=== PATIENT | female | born 1970 | race Caucasian/White ===

== ENCOUNTER 2017-12-04 23:50 | Emergency (ER) | payer OTHER ==
--- NOTE | 2017-12-05 03:03 | PDOC ---
History of Present Illness - General Stated Complaint: PAIN Time Seen by Provider: 12/05/17 02:36 History Source: Patient Exam Limitations: No Limitations - History of Present Illness Travel History: No Initial Comments: 12/05/17 04:29 47-year-old female presents to the ER with her daughter complaining of left lower quadrant abdominal discomfort with some nausea but denies fever, chills, headache, dizziness, lightheadedness, neck/stiffness, back pains, chest pain, shortness of breath, flank pains, urinary symptoms: Frequency/urgency/hesitancy , hematuria. There are no exacerbating or alleviating factors. There are no history of similar symptoms. Past History - Past Medical History Allergies/Adverse Reactions: Allergies Allergy/AdvReac Type Severity Reaction Status Date / Time No Known Allergies Allergy Verified 12/05/17 03:14 Home Medications: Ambulatory Orders NK [No Known Home Medication] 12/05/17 Review of Systems - Review of Systems Able to Perform ROS?: Yes Comments:: 12/05/17 04:30 CONSTITUTIONAL: Absent: fever, chills, diaphoresis, generalized weakness, malaise, loss of appetite HEENT: Absent: rhinorrhea, nasal congestion, throat pain, throat swelling, difficulty swallowing, mouth swelling, ear pain, eye pain, visual Changes CARDIOVASCULAR: Absent: chest pain, loss of consciousness, palpitations, irregular heart rate, peripheral edema RESPIRATORY: Absent: cough, shortness of breath, dyspnea with exertion, orthopnea, wheezing, stridor, hemoptysis GASTROINTESTINAL: LLQ pain Absent: abdominal distension, nausea, vomiting, diarrhea, constipation, melena, hematochezia GENITOURINARY: Absent: dysuria, frequency, urgency, hesitancy, hematuria, flank pain, genital pain MUSCULOSKELETAL: Absent: myalgia, arthralgia, joint swelling SKIN: Absent: rash, itching, pallor HEMATOLOGIC/IMMUNOLOGIC: Absent: easy bleeding, easy bruising, lymphadenopathy, frequent infections ENDOCRINE: Absent: unexplained weight gain, unexplained weight loss, heat intolerance, cold intolerance NEUROLOGIC: Absent: headache, focal weakness or paresthesias, dizziness, unsteady gait, seizure, mental status changes, bladder or bowel incontinence PSYCHIATRIC: Absent: anxiety, depression, suicidal or homicidal ideation, hallucinations. Is the patient limited Frisian proficient: No *Physical Exam - Physical Exam Comments: 12/05/17 04:30 GENERAL: Well developed, well nourished. Awake and alert. No acute distress. HEENT: Normocephalic, atraumatic. PERRLA, EOMI. No conjunctival pallor. Sclera are non- icteric. Moist mucous membranes. Oropharynx is clear. NECK: Supple. Full ROM. No JVD. Carotid pulses 2+ and symmetric, without bruits. No thyromegaly. No lymphadenopathy. CARDIOVASCULAR: Regular rate and rhythm. No murmurs, rubs, or gallops. Distal pulses are 2+ and symmetric. PULMONARY: No evidence of respiratory distress. Lungs clear to auscultation bilaterally. No wheezing, rales or rhonchi. ABDOMINAL: +LLQ pain on palp Soft. Non-distended. No rebound or guarding. No organomegaly. Normoactive bowel sounds. MUSCULOSKELETAL Normal range of motion at all joints. No bony deformities or tenderness. No CVA tenderness. EXTREMITIES: No cyanosis. No clubbing. No edema. No calf tenderness. SKIN: Warm and dry. Normal capillary refill. No rashes. No jaundice. NEUROLOGICAL: Alert, awake, appropriate. Cranial nerves 2-12 intact. No deficits to light touch and temperature in face, upper extremities and lower extremities. No motor deficits in the in face, upper extremities and lower extremities. Normoreflexic in the upper and lower extremities. Normal speech. Toes are down- going bilaterally. Gait is normal without ataxia. PSYCHIATRIC: Cooperative. Good eye contact. Appropriate mood and affect. ED Treatment Course - LABORATORY CBC & Chemistry Diagram: 12/05/17 03:30 12/05/17 03:30 - RADIOLOGY Radiograph Interpretation: 12/05/17 04:30 CT abd/pelvis po/iv contrast Left ovarian follicle *DC/Admit/Observation/Transfer Diagnosis at time of Disposition: Abdominal pain Qualifiers: Abdominal location: unspecified location Qualified Code(s): R10.9 - Unspecified abdominal pain - Discharge Dispostion Condition at time of disposition: Fair Decision to Admit order: No - Referrals Referrals: Fermin Restrepo MD [Staff Physician] - Catherine Matt MD [Staff Physician] - - Patient Instructions Printed Discharge Instructions: DI for Abdominal Pain-Adult Additional Instructions: Rest Follow up with your degreasing solution reclaimer for your discomfort Return to the ER for severe/persistent/worsening symptoms - Post Discharge Activity
[2017-12-05 03:14] VITALS: BP 134/85; PULSE 73; TEMP 97.5; BMI 35.3
[2017-12-05 03:20] LABS: URINE APPEARANCE SLCLOUDY; URINE BILIRUBIN NEGATIVE (<2.0 mg/dL); URINE COLOR YELLOW; URINE GLUCOSE (UA) NEGATIVE (NEGATIVE); URINE KETONE NEGATIVE (NEGATIVE); URINE LEUK ESTERASE NEGATIVE (NEGATIVE); URINE NITRITE NEGATIVE (NEGATIVE); URINE UROBILINOGEN NEGATIVE mg/dL (0.2-1.0)
[2017-12-05 03:21] LABS: HCG,QUALITATIVE URINE NEGATIVE
[2017-12-05 03:22] LABS: URINE PROTEIN 2+ (NEGATIVE)
[2017-12-05] MEDS ORDERED: SODIUM CHLORIDE 1,000 ML IV STA (03:24)
[2017-12-05 03:32] LABS: EPI CELLS RARE /HPF (FEW); URINE MUCUS RARE
[2017-12-05 03:58] LABS: BASO % 0.7 % (0-2.0); EOS % 0.3 % (0-4.5); HEMATOCRIT 32.2 % (32.4-45.2); HEMOGLOBIN 11.2 GM/dL (10.7-15.3); LYMPH % 30.3 % (8-40); MCHC 34.9 g/dl (32.0-36.0); MEAN CELL VOLUME 83.1 fl (80-96); MEAN PLT VOLUME 9.3 fl (7.5-11.1); MONO % 7.3 % (3.8-10.2); NEUT % 61.4 % (42.8-82.8); PLATELET COUNT 190 K/MM3 (134-434); RBC 3.87 M/mm3 (3.60-5.2); RDW 14.3 % (11.6-15.6); WHITE BLOOD COUNT 9.8 K/mm3 (4.0-10.0)
[2017-12-05 04:29] LABS: ALBUMIN 3.6 g/dl (3.4-5.0); ALK PHOS 111 U/L (45-117); ANION GAP 6 (8-16); BILIRUBIN,TOTAL 0.6 mg/dL (0.2-1.0); BLOOD UREA NITROGEN 11 mg/dL (7-18); CALCIUM 8.2 mg/dL (8.5-10.1); CHLORIDE 106 mmol/L (98-107); CO2 27 mmol/L (21-32); CREATININE 0.6 mg/dL (0.55-1.02); GLUCOSE,RANDOM 102 mg/dL (74-106); POTASSIUM 3.4 mmol/L (3.5-5.1); SGOT/AST 27 U/L (15-37); SGPT/ALT 31 U/L (12-78); SODIUM 139 mmol/L (136-145); TOT PROT 7.1 g/dl (6.4-8.2)
== END 2017-12-05 07:04 | disposition home or self-care (01) ==
LOC: JER 23:50
DX: N83.202 Unspecified ovarian cyst, left side (principal)
CPT/HCPCS: 36415; 74177-TC; 80053; 81003; 81015; 84703; 85025; 87086; 99283-25; J7030

== ENCOUNTER 2019-02-24 12:24 | Emergency (ER) | payer OTHER ==
[2019-02-24 12:30] VITALS: BP 165/80; PULSE 75; BMI 36.3
--- NOTE | 2019-02-24 12:31 | PDOC ---
Rapid Medical Evaluation Time Seen by Provider: 02/24/19 12:28 Medical Evaluation: Allergies Allergy/AdvReac Type Severity Reaction Status Date / Time No Known Allergies Allergy Verified 02/24/19 12:27 02/24/19 12:28 I have performed a brief in-person evaluation of this patient. The patient presents with a chief complaint of: RLQ pain since this am, (+) nausea, no vomiting, no urinary complaints. Currently menstruating. LMP 3 days ago, does not feel like menstrual cramps. PMHx Lupus, HTN Pertinent physical exam findings: Pt in mild discomfort from pain. I have ordered the following: CBC, CMP, UA, UCG, Ucx, PT, Type n screen The patient will proceed to the ED for further evaluation. 02/24/19 12:30 Discharge Disposition - Diagnosis Abdominal pain Qualifiers: Abdominal location: right lower quadrant Qualified Code(s): R10.31 - Right lower quadrant pain - Referrals - Patient Instructions - Post Discharge Activity
--- NOTE | 2019-02-24 12:42 | PDOC ---
History of Present Illness - General Chief Complaint: Pain, Acute Stated Complaint: PELVIC PAIN Time Seen by Provider: 02/24/19 12:28 Past History - Past Medical History Allergies/Adverse Reactions: Allergies Allergy/AdvReac Type Severity Reaction Status Date / Time No Known Allergies Allergy Verified 02/24/19 12:27 Home Medications: Ambulatory Orders Cephalexin [Keflex] 500 mg PO BID #13 capsule 02/24/19 Lisinopril 10 mg PO DAILY 02/24/19 Terbinafine HCl 250 mg PO DAILY 02/24/19 COPD: No HTN: Yes - Immunization History Immunization Up to Date: Yes - Suicide/Smoking/Psychosocial Hx Smoking History: Never smoked Have you smoked in the past 12 months: No Hx Alcohol Use: No Drug/Substance Use Hx: No *Physical Exam - Vital Signs Last Vital Signs Temp Pulse Resp BP Pulse Ox 97.7 F 75 18 165/80 99 02/24/19 12:28 02/24/19 12:28 02/24/19 12:28 02/24/19 12:28 02/24/19 12:28 ED Treatment Course - LABORATORY CBC & Chemistry Diagram: 02/24/19 13:25 02/24/19 13:25 Medical Decision Making - Medical Decision Making HPI: 49yo F with PMH of HTN, fibroids, and lupus (unsure what her medicines are) presenting with RLQ pain that started this morning. Patient states the pain worsened gradually, currently rated 9/10 and described as a "cramping." Nothing makes the pain better or worse. She has not taken anything at home for her pain. She has never had pain like this before.Patient has had pain from her fibroids previously, but this feels different. LMP started three days ago. No history of abdominal surgeries. Last bowel movement was this morning and was a formed yellow stool without blood. Has had poor po intake due to low appetite. No fevers, chills, chest pain, or shortness of breath. PCP: in the [facility] ROS: Constitutional: no fever, no chills HEENT: no throat pain, no dysphagia Cardiovascular: no chest pain, no palpitations Respiratory: no cough, no shortness of breath Gastrointestinal: +abdominal pain, +nausea Genitourinary: no dysuria, no hematuria Musculoskeletal: no myalgia, no arthralgia Skin: no rash, no itching Neurologic: no headache, no weakness PE: General: Awake, alert, and fully oriented, in no acute distress Head: No signs of trauma Eyes: EOMI, sclera anicteric ENT: Moist mucus membranes Neck: Normal ROM, supple Lungs: Lungs clear, Normal breath sounds Cardio: Regular rhythm, S1 and S2 present Abdomen: RLQ tenderness, +McBurney's point with rebound, -Rosving, -Psoas, no guarding, no masses Extremities: Normal range of motion, Distal pulses present SKIN: Warm, Dry, normal turgor Neurologic: Cranial nerves II through XII grossly intact. Normal speech Pelvic: External genitalia without erythema, exudate or discharge. Vaginal vault is with moderate blood. Cervix is of normal color without lesion. The os is closed. Uterus is noted to be of appropriate size and nontender. No cervical motion tenderness is seen. No masses are palpated. The adnexa are without masses or tenderness. ED Courses/MDM: DDX including but not limited to appendicitis, nephrolithiasis, pyelonephritis, UTI, fibroids, ovarian cyst, ovarian torsion Labs CTAP Morphine, Zofran, Fluids 02/24/19 12:42 CBC WBC 11.2 K/mm3 (4.0-10.0) H 02/24/19 13:25 RBC 4.55 M/mm3 (3.60-5.2) 02/24/19 13:25 Hgb 12.1 GM/dL (10.7-15.3) 02/24/19 13:25 Hct 36.2 % (32.4-45.2) 02/24/19 13:25 MCV 79.7 fl (80-96) L 02/24/19 13:25 MCH 26.5 pg (25.7-33.7) 02/24/19 13:25 MCHC 33.3 g/dl (32.0-36.0) 02/24/19 13:25 RDW 14.7 % (11.6-15.6) 02/24/19 13:25 Plt Count 173 K/MM3 (134-434) 02/24/19 13:25 MPV 9.8 fl (7.5-11.1) 02/24/19 13:25 Absolute Neuts (auto) 9.1 K/mm3 (1.5-8.0) H 02/24/19 13:25 Neutrophils % 80.5 % (42.8-82.8) D 02/24/19 13:25 Lymphocytes % 13.8 % (8-40) D 02/24/19 13:25 Monocytes % 4.9 % (3.8-10.2) 02/24/19 13:25 Eosinophils % 0.3 % (0-4.5) 02/24/19 13:25 Basophils % 0.5 % (0-2.0) 02/24/19 13:25 Nucleated RBC % 0 % (0-0) 02/24/19 13:25 Mild leukocytosis Pending chemistry 02/24/19 13:51 Pain is improved, now rated 09/0502/24/19 14:15 CMP Sodium 139 mmol/L (136-145) 02/24/19 13:25 Potassium 4.2 mmol/L (3.5-5.1) 02/24/19 13:25 Chloride 105 mmol/L (98-107) 02/24/19 13:25 Carbon Dioxide 27 mmol/L (21-32) 02/24/19 13:25 Anion Gap 7 MMOL/L (8-16) L 02/24/19 13:25 BUN 9.5 mg/dL (7-18) 02/24/19 13:25 Creatinine 0.7 mg/dL (0.55-1.3) 02/24/19 13:25 Est GFR (CKD-EPI)AfAm 119.58 02/24/19 13:25 Est GFR (CKD-EPI)NonAf 103.18 02/24/19 13:25 Random Glucose 97 mg/dL (74-106) 02/24/19 13:25 Calcium 8.4 mg/dL (8.5-10.1) L 02/24/19 13:25 Total Bilirubin 0.3 mg/dL (0.2-1) 02/24/19 13:25 AST 40 U/L (15-37) H 02/24/19 13:25 ALT 32 U/L (13-61) 02/24/19 13:25 Alkaline Phosphatase 116 U/L (45-117) 02/24/19 13:25 Total Protein 7.3 g/dl (6.4-8.2) 02/24/19 13:25 Albumin 3.6 g/dl (3.4-5.0) 02/24/19 13:25 Lipase 185 U/L (73-393) 02/24/19 13:25 Beta HCG, Quant < 1.0 mIU/ml 02/24/19 13:25 Electrolytes unremarkable Cr normal Lipase normal negative Patient sent to CT 02/24/19 14:23 Call to in-house radiologst. Patient's CT will be read next 02/24/19 16:13 CT negative for appendicitis Plan for TVUS to rule out ovarian torsion Benign pelvic exam, as above Ofirmev for pain Patient with UTI, rocephin ordered Will reassess 02/24/19 18:29 TVUS, via Imaging sessions clerk: "FINDINGS: The uterus measures 10.5 x 7.3 x 7.2 cm. Ovoid foci of mixed echogenicity within the uterine parenchyma measure 1.3 x 1.5 x 1.8 cm and 2.4 x 2.4 x 3.0 cm, respectively. Endometrial thickness is 0.9 cm. An anechoic nabothian cyst measures 0.7 cm. The right ovary measures 3.3 x 4.2 x 4.6 cm. An ovoid anechoic focus within the right ovary measures 2.7 x 2.7 x 3.4 cm. Flow is visualized within the right ovarian parenchyma on Doppler evaluation.The left ovary measures 2.6 x 3.1 x 4.5 cm. Anechoic follicles are seen within the left ovary, without apparent left adnexal masses or large cysts noted. There is a trace amount of anechoic fluid within the endocervical canal. There is minimal fluid seen within the pelvic cul-de-sac. IMPRESSION: 1. Uterine myomas, as discussed above. 2. Nonspecific fluid within the endocervical canal. If able to be performed, recommend sonohysterogram if there is concern for endometrial abnormalities. 3. Right ovarian cyst. 4. Nabothian cyst. 5. Trace free fluid within the pelvic cul-de-sac, likely physiologic." Pending po challenge Keflex sent to pharmacy Patient febrile likely due to UTI; already treated with Ofirmev 02/24/19 19:33 Po challenge passed with water and crackers Repeat temperature improved, no longer febrile Patient discharged with return precautions *DC/Admit/Observation/Transfer Diagnosis at time of Disposition: Leiomyoma Abdominal pain Qualifiers: Abdominal location: right lower quadrant Qualified Code(s): R10.31 - Right lower quadrant pain Ovarian cyst Qualifiers: Laterality: bilateral Qualified Code(s): N83.201 - Unspecified ovarian cyst, right side - Discharge Dispostion Disposition: HOME Condition at time of disposition: Stable - Prescriptions Prescriptions: Cephalexin [Keflex] 500 mg PO BID #13 capsule - Referrals Referrals: ON STAFF,NOT [Primary Care Provider] - - Patient Instructions Printed Discharge Instructions: DI for Ovarian Cyst Additional Instructions: You came into the ED for abdominal pain. Labs, CT, and Ultrasound imaging did not indicate acute pathology. Your urinalysis showed you have urinary tract infection. Antibiotics sent to your pharmacy. You can take [id number] tylenol or motrin for pain. Follow the instructions on the medication bottle. Follow-up with your primary care or practice nurse doctor in the next 72 hours to discuss this ED visit and to further evaluate your symptoms. Call and make an appointment. Your workup is not complete until you do so. Immediate medical attention is required if you have: you develop worsening pain , high fevers, persistent nausea, vomiting, or any new or concerning symptoms. If you think you are having an emergency, call for emergency medical services or present to the emergency department right away. === Llegaste al servicio de urgencias por dolor abdominal. Labs, CT y ecografa no indicaron patologa aguda. Orozco anlisis de orina mostr que tiene norma infeccin del tracto urinario. Antibiticos enviados a orozco farmacia. Puede ángela tylenol o motrin de venta narda para el dolor. Siga las instrucciones en la botella del medicamento. Rosa Elena un seguimiento con orozco mdico de atencin primaria o gineclogo / obstetra en las prximas 72 horas para analizar esta visita al servicio de urgencias y evaluar mejor cindy sntomas. Llame y rosa elena norma danny. Orozco trabajo no est completo hasta que lo rosa elena. Se requiere atencin mdica inmediata si tiene: desarrolla dolor que empeora, fiebre bubba, nuseas persistentes, vmitos o cualquier sntoma nuevo o preocupante. Si ajith que est teniendo norma emergencia, llame a los servicios mdicos de emergencia o presntese de inmediato en el departamento de emergencias. - Post Discharge Activity
[2019-02-24] MEDS ORDERED: ONDANSETRON 4 MG/2 ML VIAL IVPUSH ONE (13:08)
[2019-02-24] MEDS ORDERED: morphine CARPU-JECT 4 MG/1 ML DISP.SYRIN IVPUSH ONE (13:08)
[2019-02-24] MEDS ORDERED: SODIUM CHLORIDE 1,000 ML IV STA (13:08)
--- NOTE | 2019-02-24 13:20 | PDOC ---
Documentation entered by Renny Thurman SCRIBE, acting as scribe for Merritt Torres MD. Merritt Torres MD: This documentation has been prepared by the Cuca aguirre Elijah, SCRIBE, under my direction and personally reviewed by me in its entirety. I confirm that the documentation accurately reflects all work, treatment, procedures, and medical decision making performed by me. Attending Attestation - Resident Resident Name: Molly Andrews - ED Attending Attestation I have performed the following: I have examined & evaluated the patient, The case was reviewed & discussed with the resident, I agree w/resident's findings & plan - HPI HPI: 02/24/19 14:09 Patient is a 49 year old female with a significant past medical history of HTN, fibroids, and lupus who presents to the ED with RLQ pain starting this morning. Patient reports the pain as a 9/10 intensity and as cramping. Patient reports that this feels unlike any pain she has had before and also notes a decrease in appetite. Allergies: NKA - Physicial Exam PE: 02/24/19 14:09 Vitals: Triage Vital signs reviewed General Appearance: no acute distress, well nourished well developed, Neck: Supple;No Nuchal rigidity Chest Wall: Nontender Cardiac: Regular rate and rhythm, no murmurs, no rubs, no gallops, Lungs: Clear to auscultation bilateral, good air movement bilaterally, Abdomen: +RLQ Pain. Soft, nondistended, normal bowel sounds Rectal: Exam deferred Extremities: Full range of motion to all extremities, no cyanosis, clubbing, or edema Skin: Warm and dry, no rashes or lesions, no petechiae Psych: normal mood, normal affect
[2019-02-24] MEDS ORDERED: morphine SULFATE 4 MG/ML VIAL ONE (13:25)
[2019-02-24] MEDS ORDERED: ONDANSETRON 4 MG/2 ML VIAL ONE (13:26)
[2019-02-24 13:33] LABS: BASO % 0.5 % (0-2.0); EOS % 0.3 % (0-4.5); HEMATOCRIT 36.2 % (32.4-45.2); HEMOGLOBIN 12.1 GM/dL (10.7-15.3); LYMPH % 13.8 % (8-40); MCH 26.5 pg (25.7-33.7); MCHC 33.3 g/dl (32.0-36.0); MEAN CELL VOLUME 79.7 fl (80-96); MEAN PLT VOLUME 9.8 fl (7.5-11.1); MONO % 4.9 % (3.8-10.2); NEUT % 80.5 % (42.8-82.8); PLATELET COUNT 173 K/MM3 (134-434); RBC 4.55 M/mm3 (3.60-5.2); RDW 14.7 % (11.6-15.6); WHITE BLOOD COUNT 11.2 K/mm3 (4.0-10.0)
[2019-02-24 13:42] LABS: EPI CELLS 1.6 /HPF (0-5/HPF); HYALINE CASTS 13 /lpf (0-8); URINE APPEARANCE CLEAR; URINE BACTERIA 62.2 /hpf (NEGATIVE); URINE BILIRUBIN NEGATIVE (NEGATIVE); URINE COLOR YELLOW; URINE GLUCOSE (UA) NEGATIVE (NEGATIVE); URINE KETONE NEGATIVE (NEGATIVE); URINE LEUK ESTERASE 1+ (NEGATIVE); URINE NITRITE NEGATIVE (NEGATIVE); URINE PROTEIN 1+ (NEGATIVE); URINE RBC 66 /hpf (0-4); URINE UROBILINOGEN 0.2 mg/dL (0.2-1.0); URINE WBC 44 /hpf (0-5)
[2019-02-24 13:47] LABS: INR 1.11 (0.83-1.09); PROTHROMBIN TIME (PATIENT) 13.1 SEC (9.7-13.0)
[2019-02-24 13:50] LABS: ACTIVATED PTT 37.1 SECONDS (25.2-36.5)
[2019-02-24 14:11] LABS: LIPASE 185 U/L (73-393)
[2019-02-24 14:16] LABS: ALBUMIN 3.6 g/dl (3.4-5.0); BILIRUBIN,TOTAL 0.3 mg/dL (0.2-1); BLOOD UREA NITROGEN 9.5 mg/dL (7-18); CALCIUM 8.4 mg/dL (8.5-10.1); CREATININE 0.7 mg/dL (0.55-1.3); POTASSIUM 4.2 mmol/L (3.5-5.1); TOT PROT 7.3 g/dl (6.4-8.2)
[2019-02-24] MEDS ORDERED: CEFTRIAXONE 1,000 MG in DEXTROSE 5%-WATER - 50 ML IVPB ONE (17:46)
[2019-02-24] MEDS ORDERED: ACETAMINOPHEN 1000 MG/100 ML VIAL (NON FORMULARY) IVPB ONE (17:46)
[2019-02-24] MEDS ORDERED: CEFTRIAXONE 1 GM/50 ML BAG ONE (18:12)
[2019-02-24] MEDS ORDERED: ACETAMINOPHEN INJECTION 100 ML IVPB ONE (18:12)
[2019-02-24 20:11] VITALS: TEMP 99
== END 2019-02-24 20:11 | disposition home or self-care (01) ==
LOC: JER 12:24
PROC: 3E03329 Introduction of Other Anti-infective into Peripheral Vein, Percutaneous Approach (ICD-10-PCS; principal; 2019-02-24)
PROC: 3E033NZ Introduction of Analgesics, Hypnotics, Sedatives into Peripheral Vein, Percutaneous Approach (ICD-10-PCS; 2019-02-24)
PROC: 3E033NZ Introduction of Analgesics, Hypnotics, Sedatives into Peripheral Vein, Percutaneous Approach (ICD-10-PCS; 2019-02-24)
PROC: 3E033GC Introduction of Other Therapeutic Substance into Peripheral Vein, Percutaneous Approach (ICD-10-PCS; 2019-02-24)
DX: N39.0 Urinary tract infection, site not specified (principal); D25.9 Leiomyoma of uterus, unspecified; N83.201 Unspecified ovarian cyst, right side; N83.202 Unspecified ovarian cyst, left side
CPT/HCPCS: 36415; 74177-TC; 76830-TC; 80053; 81003; 83690; 84702; 84703; 85025; 85610; 85730; 86850; 86900; 86901; 87077; 87086; 99285-25; J0131; J7030

== ENCOUNTER 2019-07-12 22:06 | Emergency (ER) | payer OTHER ==
[2019-07-12 22:14] VITALS: TEMP 98.8; BMI 35.3
[2019-07-12 23:18] VITALS: BP 144/83; PULSE 100
--- NOTE | 2019-07-13 00:24 | PDOC ---
Documentation entered by Hermes Miles SCRIBE, acting as scribe for Theresa Soler MD. Theresa Soler MD: This documentation has been prepared by the Jd aguirre Xhesika, SCRIBE, under my direction and personally reviewed by me in its entirety. I confirm that the documentation accurately reflects all work, treatment, procedures, and medical decision making performed by me. History of Present Illness - General Chief Complaint: Cold Symptoms Stated Complaint: FEVER/COUGH/HEADACHE Time Seen by Provider: 07/12/19 23:10 History Source: Patient Exam Limitations: No Limitations - History of Present Illness Initial Comments: 07/12/19 23:22 Patient is a 49 year old female with a significant past medical history of HTN, fibroids, and lupus who presents to the ED with 2 days of nasal congestion cough/ cold, fever. Patient reports R breast mass last Thursday. Pt notes she went to [facility] and was told they could not do a US and she needs to follow up with a specialist. The patient states her appointment is on at 1pm where the specialist is going to look at her old mammograms and do further evaluation of her reported breast mass. The patient denies chest pain, shortness of breath, headache and dizziness. Denies chills, nausea, vomiting, diarrhea and constipation. Denies dysuria, frequency, urgency and hematuria. Allergies: NKA Past History - Past Medical History Allergies/Adverse Reactions: Allergies Allergy/AdvReac Type Severity Reaction Status Date / Time No Known Allergies Allergy Verified 02/24/19 12:27 Home Medications: Ambulatory Orders Lisinopril 10 mg PO DAILY 02/24/19 COPD: No HTN: Yes Other medical history: Lupus - Immunization History Immunization Up to Date: Yes - Psycho Social/Smoking Cessation Hx Smoking History: Never smoked Have you smoked in the past 12 months: No Hx Alcohol Use: No Drug/Substance Use Hx: No Review of Systems - Review of Systems Able to Perform ROS?: Yes Comments:: 07/12/19 23:23 GENERAL/CONSTITUTIONAL: (+) fever. No chills. No weakness. HEAD, EYES, EARS, NOSE AND THROAT: No change in vision. No ear pain or discharge. No sore throat. (+) nasal congestion. CARDIOVASCULAR: No chest pain or shortness of breath. RESPIRATORY: (+) cough. No wheezing, or hemoptysis. GASTROINTESTINAL: No nausea, vomiting, diarrhea or constipation. GENITOURINARY: No dysuria, frequency, or change in urination. MUSCULOSKELETAL: No joint or muscle swelling or pain. No neck or back pain. SKIN: (+) reported R breast mass. NEUROLOGIC: No headache, vertigo, loss of consciousness, or change in strength/ sensation. ENDOCRINE: No increased thirst. No abnormal weight change. HEMATOLOGIC/LYMPHATIC: No anemia, easy bleeding, or history of blood clots. ALLERGIC/IMMUNOLOGIC: No hives or skin allergy. *Physical Exam - Vital Signs Last Vital Signs Temp Pulse Resp BP Pulse Ox 98.8 F 104 H 20 161/101 H 98 07/12/19 22:11 07/12/19 22:11 07/12/19 22:11 07/12/19 22:11 07/12/19 22:11 - Physical Exam 07/12/19 23:24 GENERAL: Awake, alert, and fully oriented, in no acute distress HEAD: No signs of trauma EYES: PERRLA, EOMI, sclera anicteric, conjunctiva clear ENT: Auricles normal inspection, hearing grossly normal, nares patent, oropharynx clear without exudates. Moist mucosa NECK: Normal ROM, supple, no lymphadenopathy, JVD, or masses LUNGS: Breath sounds equal, clear to auscultation bilaterally. No wheezes, and no crackles HEART: Regular rate and rhythm, normal S1 and S2, no murmurs, rubs or gallops ABDOMEN: Soft, nontender, normoactive bowel sounds. No guarding, no rebound. No masses EXTREMITIES: Normal range of motion, no edema. No clubbing or cyanosis. No cords, erythema, or tenderness NEUROLOGICAL: Cranial nerves II through XII grossly intact. Normal speech, normal gait SKIN: Warm, Dry, normal turgor, no rashes or lesions noted. Discharge - Discharge Information Problems reviewed: Yes Clinical Impression/Diagnosis: Influenza Condition: Stable Disposition: HOME - Follow up/Referral Referrals: ON STAFF,NOT [Primary Care Provider] - - Patient Discharge Instructions Patient Printed Discharge Instructions: DI for Influenza -- Adult Additional Instructions: please take tylenol or motrin for fever and bodyaches roll picker your medication for flu symptoms at the pharmacy rest drink plenty of fluid PLEASE keep your appointment with the specialist at [facility] for the breast lump your were diagnosed with 2 weeks ago - Post Discharge Activity
== END 2019-07-13 00:28 | disposition home or self-care (01) ==
LOC: JER 22:06
DX: J09.X2 Influenza due to identified novel influenza A virus with other respiratory manifestations (principal); I10 Essential (primary) hypertension; Z87.39 Personal history of other diseases of the musculoskeletal system and connective tissue
CPT/HCPCS: 87070; 87804; 87880; 99282-25

== ENCOUNTER 2021-01-08 12:46 | Emergency (ER) | payer OTHER ==
[2021-01-08 12:57] VITALS: BP 177/95; PULSE 92; TEMP 98.3; BMI 31.1
== END 2021-01-08 14:35 | disposition home or self-care (01) ==
LOC: JER 12:46
DX: R05 Cough (principal); Z11.52 Encounter for screening for COVID-19
CPT/HCPCS: 71046-TC-FY; 87880; 99284-25; C9803; U0003; U0005